=== PATIENT | male | born 1960 | race Caucasian/White ===

== ENCOUNTER 2017-07-15 19:18 | Emergency (ER) | payer OTHER ==
[~2017-07-15] VITALS: Ht 177.8 cm; Wt 75.1 kg
[2017-07-15] VITALS (9 sets, daily range): BP systolic 159–226; BP diastolic 99–130; PULSE 60–69; RESP 16–18; TEMP 98.2; O2SAT 96–100
[~2017-07-15 19:18] MED LIST: IBUP-232 PO; OXYC1TAB13 PO; ROBA750T PO
[2017-07-15] MEDS ORDERED: ORPHENADRINE INJ 60 MG/2 ML AMP IM ONE (20:45)
--- NOTE | 2017-07-15 21:17 | RADRPT ---
EXAM DATE/TIME: 07/15/2017 20:54 [facility] COMPARISON: No previous studies available for comparison. INDICATIONS : Right hip pain. No known injury. Pain radiates down right leg. MEDICAL HISTORY : None. SURGICAL HISTORY : None. ENCOUNTER: Initial ACUITY: 1 week PAIN SCORE: 10/10 LOCATION: Right hip. FINDINGS: The bony pelvis is intact and has normal morphology. No fracture or subluxation of either hip. Mild o steoarthritis seen on both sides. CONCLUSION: Mild bilateral hip osteoarthritis. No fracture or other acute abnormality. Blane Lindsey MD on July 15, 2017 at 21:14 Board Certified Radiologist. This report was verified electronically.
--- NOTE | 2017-07-15 21:18 | RADRPT ---
EXAM DATE/TIME: 07/15/2017 21:02 [facility] COMPARISON: No previous studies available for comparison. INDICATIONS : Lower back pain. No known injury. MEDICAL HISTORY : None. SURGICAL HISTORY : None. ENCOUNTER: Initial ACUITY: 1 week PAIN SCORE: 10/10 LOCATION: Bilateral lumbar spine. FINDINGS: Lumbar spine alignment is normal. Vertebral bodies have normal height. No evidence of fracture. Mild disc space narrowing and mild bilateral facet osteoarthritis seen at each level, L3/L4, L4/L5 an d L5/S1. CONCLUSION: Mild mid and lower lumbar degenerative changes. No fracture or subluxation. Blane Lindsey MD on July 15, 2017 at 21:15 Board Certified Radiologist. This report was verified electronically.
[2017-07-15 21:38] LABS: AUTOMATED NEUTROPHIL # 5.8 TH/MM3 (1.8-7.7); BASOPHIL % 0.6 % (0.0-2.0); EOSINOPHIL # 0.1 TH/MM3 (0-0.4); EOSINOPHIL % 1.6 % (0.0-4.0); HEMATOCRIT 47.1 % (39.0-51.0); HEMO FLAGS DIFF FINAL; LYMPH % 21.2 % (9.0-44.0); LYMPHOCYTE # 1.7 TH/MM3 (1.0-4.8); MEAN CELL VOLUME 86.8 FL (80.0-100.0); MEAN CORPUSCULAR HEMOGLOBIN 29.2 PG (27.0-34.0); MEAN CORPUSCULAR HGB CONC 33.6 % (32.0-36.0); MONO % 4.5 % (0.0-8.0); NEUT % 72.1 % (16.0-70.0); PLATELET COUNT 259 TH/MM3 (150-450); RED BLOOD COUNT 5.43 MIL/MM3 (4.50-5.90); RED CELL DISTRIBUTION WIDTH 12.2 % (11.6-17.2)
[2017-07-15 21:39] LABS: BLOOD, URINE NEG (NEG); GLUCOSE,URINE NEG (NEG); KETONE, URINE NEG (NEG); NITRITE,URINE NEG (NEG)
[2017-07-15 21:43] LABS: COMMENT (UR) CULT NOT INDICATED; CULTURE IF INDICATED CULT NOT INDICATED; SQUAMOUS EPITHELIAL CELL URINE 0-5 /hpf (0-5); URINE COLOR YELLOW (YELLW/STRAW); WBC, URINE 0-2 /hpf (0-5)
[2017-07-15] MEDS ORDERED: cloNIDine HCL 0.1 MG TAB PO ONE (21:45)
[2017-07-15 21:48] LABS: POTASSIUM 3.8 MEQ/L (3.5-5.1)
[2017-07-15 21:52] LABS: BICARBONATE 28.7 MEQ/L (21.0-32.0)
[2017-07-15] MEDS ORDERED: ONDANSETRON HCL 4 MG/2 ML VIAL IV PUSH ONE (22:00)
[2017-07-15] MEDS ORDERED: HYDROmorphone HCL PF 1 MG/ML VIAL IV PUSH ONE ×2 (22:00→23:45)
[2017-07-15] MEDS ORDERED: hydrALAZINE HCL 20 MG/ML VIAL IV PUSH ONE (23:00)
[2017-07-15] MEDS ORDERED: KETOROLAC TROMETHAMINE 30 MG/ML (IVP) VIAL IV PUSH ONE (23:45)
[2017-07-15] MEDS ORDERED: ROBA750T PO (23:49)
[2017-07-15] MEDS ORDERED: AMLO5 PO (23:49)
[2017-07-15] MEDS ORDERED: IBUP800T23 PO (23:49)
[2017-07-15] MEDS ORDERED: CLON0.1T PO (23:49)
--- NOTE | 2017-07-15 23:51 | PD ---
HPI Chief Complaint: Musculoskeletal Complaint Time Seen by Provider: 20:10 Travel History International Travel<30 days: No Contact w/Intl Traveler<30days: No Traveled to known affect area: No History of Present Illness HPI 56-year-old male presents to the emergency department for complaint of 3 weeks of low back pain and now pain radiating into his right lower extremity times two weeks. Patient denies any lower extremity numbness tingling or weakness saddle anesthesia or bladder or bowel dysfunction. Patient does not recall any specific injury but has done lifting in the past month. No fall or injury. Patient also has history of high blood pressure but does not report any complaint of headache visual disturbance neck pain chest pain mid scapular pain upper or lower extremity numbness tingling or weakness or pain abdominal pain shortness of breath sweats nausea or vomiting. Patient states she's been using [id number] ibuprofen without symptom relief along with moist heat and ice intermittently. Patient rates pain 10 over 10 in intensity. Patient has not followed up with a primary care provider. Patient states pain has radiated into his right buttock hip and lower extremity radiating down to his calf and foot. Range of motion weightbearing seemed to exacerbate symptoms but is unable to identify alleviating factors. [facility] Past Medical History Narrative Medical Arthritis, sciatica, dyslipidemia, hypertension, COPD, cardiac catheterization, GERD, hiatal hernia, narcolepsy, sleep apnea, inguinal herniorrhaphy, hemorrhoidectomy, tibia fibula fracture repair; denies tobacco use alcohol use substance use; nursing notes reviewed Arthritis: Yes (KNEES ANKLES) Asthma: Yes Autoimmune Disease: No Blood Disorders: No Anxiety: No Depression: No Heart Rhythm Problems: No Cancer: No Cardiac Catheterization: Yes (2008) Cardiovascular Problems: Yes High Cholesterol: Yes Chemotherapy: No Chest Pain: No Congestive Heart Failure: No COPD: Yes Cerebrovascular Accident: No Diabetes: No Diminished Hearing: No Endocrine: No Gastrointestinal Disorders: Yes GERD: Yes Glaucoma: No Genitourinary: No Headaches: No Hepatitis: No Hiatal Hernia: Yes Hypertension: Yes Immune Disorder: No Inguinal Hernia: Yes (rt side repair) Kidney Stones: No Musculoskeletal: Yes Neurologic: No Psychiatric: No Reproductive: No Respiratory: Yes (NARCOLEPSY) Immunizations Current: Yes Migraines: No Myocardial Infarction: No Radiation Therapy: No Renal Failure: No Seizures: No Sickle Cell Disease: No Sleep Apnea: Yes Thyroid Disease: No Ulcer: No PNEUMOCCOCAL Vaccine (Year): 2007 Past Surgical History Abdominal Surgery: Yes (rt GROIN HERNIA MRSA) AICD: No Appendectomy: No Cardiac Surgery: No Cholecystectomy: No Ear Surgery: No Endocrine Surgery: No Eye Surgery: No Genitourinary Surgery: No Gynecologic Surgery: No Insulin Pump: No Joint Replacement: No Oral Surgery: No Pacemaker: No Thoracic Surgery: No Other Surgery: Yes (HEMMORHOID SURGERY 11/26/12) Social History Alcohol Use: No Tobacco Use: No Substance Use: No Allergies-Medications (Allergen,Severity, Reaction): Coded Allergies: bee venom protein (honey bee) (Verified Allergy, Severe, Rash, 07/15/17) acetaminophen (Verified Allergy, Mild, Rash, 07/15/17) clindamycin (Verified Allergy, Mild, Rash, 07/15/17) daptomycin (Verified Allergy, Mild, Rash, 07/15/17) latex (Verified Allergy, Mild, Rash, 07/15/17) vancomycin (Verified Allergy, Mild, Rash, 07/15/17) Reported Meds & Prescriptions Reported Meds & Active Scripts Active Ibuprofen 600 Mg Tab 600 Mg PO Q8HR PRN Robaxin (Methocarbamol) 750 Mg Tab 750 Mg PO Q8HR Reported Roxicodone (Oxycodone HCl) 5 Mg Tab 5 Mg PO Q4H PRN Review of Systems Except as stated in HPI: all other systems reviewed are Neg General / Constitutional: No: Fever, Chills HENT: No: Congestion Cardiovascular: No: Chest Pain or Discomfort Respiratory: No: Shortness of Breath Gastrointestinal: No: Abdominal Pain Genitourinary: No: Hesitancy, Dribbling, Incontinence, Pelvic Pain, Flank Pain Musculoskeletal: Positive: Myalgias, Arthralgias, Pain (back, right hip, right leg), No: Limited ROM, Weakness, Edema Skin: No Rash Neurologic: No: Weakness, Dizziness, Syncope, Focal Abnormalities, Coordination Problem, Paresthesia, Incontinence Psychiatric: No: Anxiety Hematologic/Lymphatic: No: Lymph Node Enlargement Physical Exam Narrative GENERAL: Well-developed well-nourished male in obvious discomfort no respiratory distress SKIN: Warm and dry. HEAD: Normocephalic. EYES: No scleral icterus. No injection or drainage. NECK: Supple, trachea midline. No JVD or lymphadenopathy. CARDIOVASCULAR: Regular rate and rhythm without murmurs, gallops, or rubs. RESPIRATORY: Breath sounds equal bilaterally. No accessory muscle use. GASTROINTESTINAL: Abdomen soft, non-tender, nondistended. MUSCULOSKELETAL: No cyanosis, or edema. Bilateral radial and dorsalis pedis pulses 2+ to palpation bilaterally. Capillary refill less than 2 seconds per digit. No pallor no coolness no edema no erythema. BACK: Nontender without obvious deformity. Straight leg raising. DTRs 2+ and equal bilateral lower extremities without clonus. Sensory exam intact. Motor strength 5 over 5 bilateral lower extremities. No CVA tenderness. Data Data Last Documented VS Vital Signs Date Time Temp Pulse Resp B/P Pulse Ox O2 Delivery O2 Flow Rate FiO2 07/15/17 23:22 66 16 193/104 97 Room Air 07/15/17 19:47 98.2 Orders Spine, Lumbar - Ltd (Ap & Lat) (07/15/17 ) Hip, Uni(Ap&Lat) W Ap Pelvis (07/15/17 ) ^ Saline Lock (07/15/17 20:38) Complete Blood Count With Diff (07/15/17 20:38) Basic Metabolic Panel (Bmp) (07/15/17 20:38) Urinalysis - C+S If Indicated (07/15/17 20:38) Orphenadrine Inj (Norflex Inj) (07/15/17 20:45) Clonidine (Catapres) (07/15/17 21:45) Hydromorphone Pf Inj (Dilaudid Pf Inj) (07/15/17 22:00) Ondansetron Inj (Zofran Inj) (07/15/17 22:00) Hydralazine Inj (Apresoline Inj) (07/15/17 23:00) Labs Laboratory Tests Test 07/15/17 07/15/17 21:26 21:35 White Blood Count 8.0 TH/MM3 Red Blood Count 5.43 MIL/MM3 Hemoglobin 15.8 GM/DL Hematocrit 47.1 % Mean Corpuscular Volume 86.8 FL Mean Corpuscular Hemoglobin 29.2 PG Mean Corpuscular Hemoglobin 33.6 % Concent Red Cell Distribution Width 12.2 % Platelet Count 259 TH/MM3 Mean Platelet Volume 8.4 FL Neutrophils (%) (Auto) 72.1 % Lymphocytes (%) (Auto) 21.2 % Monocytes (%) (Auto) 4.5 % Eosinophils (%) (Auto) 1.6 % Basophils (%) (Auto) 0.6 % Neutrophils # (Auto) 5.8 TH/MM3 Lymphocytes # (Auto) 1.7 TH/MM3 Monocytes # (Auto) 0.4 TH/MM3 Eosinophils # (Auto) 0.1 TH/MM3 Basophils # (Auto) 0.0 TH/MM3 CBC Comment DIFF FINAL Differential Comment Sodium Level 139 MEQ/L Potassium Level 3.8 MEQ/L Chloride Level 104 MEQ/L Carbon Dioxide Level 28.7 MEQ/L Anion Gap 6 MEQ/L Blood Urea Nitrogen 14 MG/DL Creatinine 1.10 MG/DL Estimat Glomerular Filtration 69 ML/MIN Rate Random Glucose 87 MG/DL Calcium Level 8.7 MG/DL Urine Color YELLOW Urine Turbidity CLEAR Urine pH 6.0 Urine Specific [place] 1.021 Urine Protein NEG mg/dL Urine Glucose (UA) NEG mg/dL Urine Ketones NEG mg/dL Urine Occult Blood NEG Urine Nitrite NEG Urine Bilirubin NEG Urine Leukocyte Esterase NEG Urine WBC 0-2 /hpf Urine Squamous Epithelial 0-5 /hpf Cells Microscopic Urinalysis Comment CULT NOT INDICATED MDM Medical Decision Making Medical Screen Exam Complete: Yes Emergency Medical Condition: Yes Medical Record Reviewed: Yes Interpretation(s) UA: wnl Last Impressions Lumbar Spine X-Ray 07/15/17 0000 Signed Impressions: Service Date/Time: Saturday, July 15, 2017 21:02 - CONCLUSION: Mild mid and lower lumbar degenerative changes. No fracture or subluxation. Blane Lindesy MD Hip and Pelvis X-Ray 07/15/17 0000 Signed Impressions: Service Date/Time: Saturday, July 15, 2017 20:54 - CONCLUSION: Mild bilateral hip osteoarthritis. No fracture or other acute abnormality. Blane Lindsey MD CBC & BMP Diagram 07/15/17 21:26 Differential Diagnosis Sciatica, piriformis syndrome, HNP, degenerative disc disease, musculoskeletal pain, bursitis, uncontrolled HTN/accelerated HTN, unlikely cauda equina syndrome no findings for peripheral vascular disease or septic arthritis Narrative Course Imaging studies ordered; patient administered Norflex 60 mg IM IV access obtained specimens collected and sent for resulting patient administered Zofran 4 mg IV Dilaudid 1 mg IV for pain management and clonidine 0.1 mg by mouth blood pressure management Patient remains hypertensive given a dose of hydralazine 10 mg IV Patient continues to complain of severe pain landing on his right side with increased pain related over onto his back for blood pressure check. Patient given a one-time additional dose of Dilaudid 1 mg IV and Toradol 30 mg IV Blood pressure with good response after hydralazine blood pressure 159/99. Diagnosis Primary Impression: Sciatica of right side Additional Impression: Hypertension Qualified Code: I10 - Essential hypertension Referrals: Primary Care Physician 2 days Patient Instructions: General Instructions, Narcotic given in the ED Departure Forms: Tests/Procedures, Work Release Special Instructions: no work x 2 days Additional Instructions: Take medications as prescribed Monitor blood pressure closely Follow-up with primary care provider call office in a.m. to schedule follow-up appointment this week Use moist heat to low back for comfort purposes Return to the emergency department for any concerns or change in condition No work 2 days Use muscle relaxant with caution as may increase risk for fall impair judgment or decision making May use as tolerated ibuprofen Med/Other Pt SpecificInfo: Prescription(s) given Scripts Clonidine 0.1 Mg Tab0.1 Mg PO Q12HR PRN (SBP>180, DBP>95) #5 TAB Ref 0 Prov:Amber Herman MD 07/15/17 Amlodipine (Norvasc)5 Mg Tab5 Mg PO DAILY #30 TAB Ref 0 Prov:Amber Herman MD 07/15/17 Ibuprofen 800 Mg [id number] Mg PO Q8H PRN (PAIN GREATER THAN 5) #10 TAB Ref 0 Prov:Amber Herman MD 07/15/17 Methocarbamol (Robaxin)750 Mg [id number] Mg PO Q6HR #12 TAB Ref 0 Prov:Amber Herman MD 07/15/17 Disposition: 01 DISCHARGE HOME Condition: Stable Amber Herman MD Jul 15, 2017 23:51
[2017-07-16 00:20] VITALS: RESP 16
[2017-07-16 00:35] VITALS: BP 146/86
== END 2017-07-16 01:05 | disposition home or self-care (01) ==
LOC: PHED 19:18
DX: M54.41 Lumbago with sciatica, right side (principal); I10 Essential (primary) hypertension; K21.9 Gastro-esophageal reflux disease without esophagitis; G47.30 Sleep apnea, unspecified; E78.5 Hyperlipidemia, unspecified
CPT/HCPCS: 72100; 73502; 80048; 81001; 85025; 96372; 96374; 96375; 96376; 99284; J0360; J1170; J1885; J2360; J2405